=== PATIENT | female | born 2000 | race Caucasian/White ===

== ENCOUNTER → 2020-05-21 | Outpatient (CLI) | payer OTHER ==
[~2020-05-21] MED LIST: ACHD5005 PO; MEDR150D8 IM
[2020-05-21 16:14] LABS: HEMOGLOBIN 13.6 G/DL (11.5-16.0); MEAN PLATELET VOLUME 9.8 FL (7.4-10.4); RED CELL DISTRIBUTION WIDTH 11.9 % (10.0-14.5); WHITE BLOOD COUNT 8.3 10^3/uL (4.3-11.0)
[2020-05-21 16:49] LABS: BILIRUBIN,URINE NEGATIVE (NEGATIVE); CLARITY,URINE CLEAR; COLOR,URINE YELLOW; GLUCOSE, URINE (UA) NEGATIVE (NEGATIVE); KETONES,URINE NEGATIVE (NEGATIVE); NITRITE,URINE NEGATIVE (NEGATIVE); PROTEIN,URINE NEGATIVE (NEGATIVE)
[2020-05-21 16:50] LABS: BACTERIA,URINE TRACE /HPF; LEUKOCYTE ESTERASE ,URINE 1+ (NEGATIVE)
== END ==
LOC: LAB FS 15:44
PROVIDERS: ATTEND Family Medicine
DX: Z00.00 Encounter for general adult medical examination without abnormal findings (principal)
CPT/HCPCS: 81000; 85027; 86762; 87088; G0499; 36415; 86706

== ENCOUNTER → 2021-09-20 | Outpatient (CLI) | payer OTHER ==
--- NOTE | 2021-09-20 12:34 | Diagnostic Imaging Report ---
PROCEDURE: CT abdomen and pelvis without contrast. TECHNIQUE: Multiple contiguous axial images were obtained through the abdomen and pelvis without the use of intravenous contrast. Auto Exposure Controls were utilized during the CT exam to meet ALARA standards for radiation dose reduction. INDICATION: Frequent urinary tract infections and hematuria. COMPARISON: 11/16/2019. FINDINGS: The lung bases are clear. The liver and gallbladder are unremarkable. There is no biliary ductal dilatation. The pancreas and spleen are unremarkable. No adrenal mass is detected. No renal calculi or hydronephrosis is detected. There are some calcifications in the right adnexa but these could be associated with the right ovary. No definite ureteral calculi are seen. No bladder calculi are detected. The uterus contains an IUD. The bowel loops are of normal caliber. There is no obstruction. The aorta is unremarkable. No free fluid or fluid collection is seen. The bony structures are nonacute. IMPRESSION: Unremarkable noncontrast CT of the abdomen and pelvis. There is no evidence of urinary tract calculi or obstruction. Dictated by: Dictated on workstation # [id number]
== END ==
LOC: RAD 12:15
PROVIDERS: ATTEND Urology
DX: N39.0 Urinary tract infection, site not specified (principal)
CPT/HCPCS: 74176